=== PATIENT | female | born 1990 | race African-American/Black ===

== ENCOUNTER 2019-05-10 21:13 | Emergency (ER) | payer OTHER ==
[~2019-05-10] VITALS: Ht 170.2 cm; Wt 98.2 kg
[2019-05-10 22:43] LABS: INFLUENZA A AMPLIFICATION NEGATIVE (NEGATIVE); INFLUENZA B AMPLIFICATION POSITIVE (NEGATIVE)
[2019-05-11] MEDS ORDERED: NS 1,000 ML IV ONE (00:15)
[2019-05-11] MEDS ORDERED: ACETAMINOPHEN 325 MG TAB PO ONE (00:15)
[2019-05-11 00:45] VITALS: BP 141/92
[2019-05-11 00:53] LABS: BASO % 0.4 % (0.0-1.0); EOS % 0.3 % (0.0-3.0); HEMATOCRIT 43.4 % (36.0-47.0); HEMOGLOBIN 14.2 g/dl (12.0-15.5); LYMPH # 0.5 10^3/uL (1.5-5.0); LYMPH % 6.4 % (24.0-44.0); MEAN CORPUSCULAR HEMOGLOBIN 30.5 pg (27.0-33.0); MEAN CORPUSCULAR HGB CONC 32.7 g/dl (32.0-36.5); MEAN CORPUSCULAR VOLUME 93.3 fl (80.0-96.0); MONO # 1.1 10^3/uL (0.0-0.8); MONO % 14.2 % (0.0-5.0); NEUTROPHILS # 5.8 10^3/uL (1.5-8.5); NEUTROPHILS % 77.9 % (36.0-66.0); PLATELET COUNT, AUTOMATED 186 10^3/uL (150-450); RED BLOOD COUNT 4.65 10^6/uL (4.00-5.40); WHITE BLOOD COUNT 7.5 10^3/uL (4.0-10.0)
[2019-05-11 01:22] LABS: ALBUMIN 3.2 GM/DL (3.2-5.2); ALT/SGPT 41 U/L (12-78); BILIRUBIN,DIRECT < 0.1 MG/DL (0.0-0.2); BILIRUBIN,TOTAL 0.3 MG/DL (0.2-1.0); BLOOD UREA NITROGEN 17 MG/DL (7-18); CALCIUM LEVEL 9.3 MG/DL (8.5-10.1); CARBON DIOXIDE LEVEL 27 MEQ/L (21-32); CHLORIDE LEVEL 102 MEQ/L (98-107); CK-MB VALUE MASS < 1.0 NG/ML (<3.6); CPK CREATINE PHOSPHOKINASE 115 U/L (26-192); CREATININE FOR GFR 1.49 MG/DL (0.55-1.30); GLOMERULAR FILTRATION RATE 54.6 (>60); GLUCOSE, FASTING 88 MG/DL (70-100); LIPASE 131 U/L (73-393); MB/CK RELATIVE INDEX 0.87 (< OR =4); POTASSIUM SERUM 4.3 MEQ/L (3.5-5.1); SODIUM LEVEL 135 MEQ/L (136-145); TOTAL PROTEIN 7.7 GM/DL (6.4-8.2); TROPONIN I < 0.02 NG/ML (< 0.10)
[2019-05-11] MEDS ORDERED: PROAAER10 INH (02:10)
[2019-05-11] MEDS ORDERED: OSEL75CA PO (02:10)
[2019-05-11] MEDS ORDERED: KETOROLAC 30 MG/ML VIAL (J1885) IV ONE (02:15)
[2019-05-11] MEDS ORDERED: ALBUTEROL 90 MCG/ACT 8GM HFA INHALER INH ONE (02:15)
[2019-05-11] MEDS ORDERED: OSELTAMIVIR PHOSPHATE 75 MG CAP (TAMIFLU) PO ONE (02:15)
--- NOTE | 2019-05-11 08:01 | REP ---
Clinical: Lower chest and abdominal pain . Comparison: None . Technique: PA and lateral. Findings: The mediastinum and cardiac silhouette are normal. The lung rivera are clear and without acute consolidation, effusion, or pneumothorax. The skeletal structures are intact and normal. Impression: 1. No acute cardiopulmonary process. Electronically Signed by Chris Ibrahim MD 05/11/2019 07:47 A
--- NOTE | 2019-05-13 08:43 | ECGEPIP ---
[facility] - ED Test Date: 2019-05-11 Pat Name: AFTAB ZHANG Department: Room: - Gender: Female Back Hoe Machine Operator: YAYA : 1990 Requested By: TONNY Samuel PA-C Order Number: [id number] Reading MD: Parvin De La Vega Measurements Intervals [place] Rate: 94 P: 36 VT: 156 QRS: 3 QRSD: 90 T: 7 QT: 315 QTc: 395 Interpretive Statements SINUS RHYTHM MODERATE VOLTAGE CRITERIA FOR LVH, CONSIDER NORMAL VARIANT BENIGN EARLY REPOLARIZATION NO PRIORS FOR COMPARISON Electronically Signed on 05-13-2019 8:43:06 EST by Pravin De La Vega
== END 2019-05-11 02:40 | disposition home or self-care (01) ==
LOC: M ED 21:13
DX: J10.1 Influenza due to other identified influenza virus with other respiratory manifestations (principal); R35.0 Frequency of micturition; Z88.0 Allergy status to penicillin
CPT/HCPCS: 71046; 80048; 80076; 81001; 82550; 82553; 83690; 84484; 84702; 85025; 85379; 87502; 93005; 96361; 96374; 99284; J1885

== ENCOUNTER 2019-11-18 13:53 | Emergency (ER) | payer OTHER ==
[~2019-11-18] VITALS: Ht 170.2 cm; Wt 109.1 kg
[~2019-11-18 13:53] MED LIST: OSEL75CA PO; PROAAER10 INH
[2019-11-18 14:51] LABS: HEMATOCRIT 41.7 % (36.0-47.0); HEMOGLOBIN 13.5 g/dl (12.0-15.5); MEAN CORPUSCULAR HEMOGLOBIN 30.1 pg (27.0-33.0); MEAN CORPUSCULAR HGB CONC 32.4 g/dl (32.0-36.5); MEAN CORPUSCULAR VOLUME 92.9 fl (80.0-96.0); PLATELET COUNT, AUTOMATED 251 10^3/uL (150-450); RED BLOOD COUNT 4.49 10^6/uL (4.00-5.40); WHITE BLOOD COUNT 7.7 10^3/uL (4.0-10.0)
[2019-11-18 15:13] LABS: HCG, SERUM QUALITATIVE NEGATIVE (NEGATIVE)
[2019-11-18 15:24] LABS: ACETAMINOPHEN LEVEL < 2.0 UG/ML (10.0-30.0); ALBUMIN 3.4 GM/DL (3.2-5.2); ALT/SGPT 23 U/L (12-78); BILIRUBIN,DIRECT < 0.1 MG/DL (0.0-0.2); BILIRUBIN,TOTAL 0.3 MG/DL (0.2-1.0); BLOOD UREA NITROGEN 22 MG/DL (7-18); CALCIUM LEVEL 8.9 MG/DL (8.5-10.1); CARBON DIOXIDE LEVEL 26 MEQ/L (21-32); CHLORIDE LEVEL 107 MEQ/L (98-107); CREATININE FOR GFR 1.72 MG/DL (0.55-1.30); ETHYL ALCOHOL (ETHANOL) < 0.003 % (0.000-0.010); GLOMERULAR FILTRATION RATE 46.2 (>60); GLUCOSE, FASTING 82 MG/DL (70-100); POTASSIUM SERUM 4.5 MEQ/L (3.5-5.1); SALICYLATE LEVEL < 1.7 MG/DL (5.0-30.0); SODIUM LEVEL 138 MEQ/L (136-145)
[2019-11-18 16:01] LABS: AMPHETAMINES LEVEL URINE NEGATIVE (NEGATIVE); BARBITURATES URINE NEGATIVE (NEGATIVE); BENZODIAZEPINES URINE NEGATIVE (NEGATIVE); CANNABINOIDS URINE POSITIVE (NEGATIVE); COCAINE METABOLITE URINE NEGATIVE (NEGATIVE); METHADONE URINE NEGATIVE (NEGATIVE); OPIATES URINE NEGATIVE (NEGATIVE); PHENCYCLIDINE URINE NEGATIVE (NEGATIVE)
[2019-11-18 16:18] LABS: APPEARANCE, URINE CLOUDY (CLEAR); BACTERIA, URINE AUTO 1+ (NEGATIVE); BILIRUBIN, URINE AUTO NEGATIVE (NEGATIVE); BLOOD, URINE BLOOD NEGATIVE (NEGATIVE); COLOR, URINE YELLOW (YELLOW); GLUCOSE, URINE (UA) AUTO NEGATIVE (NEGATIVE); KETONE, URINE AUTO NEGATIVE (NEGATIVE); LEUKOCYTE ESTERASE, URINE AUTO 1+ (NEGATIVE); MUCUS, URINE SMALL (NEGATIVE); NITRITE, URINE AUTO NEGATIVE (NEGATIVE); PROTEIN, URINE AUTO 3+ mg/dL (NEGATIVE); RBC, URINE AUTO 2 /HPF (0-3); SPECIFIC GRAVITY URINE AUTO 1.016 (1.002-1.035); SQUAMOUS EPITHELIAL CELL UR AU 27 /HPF (0-6); UROBILINOGEN, URINE AUTO 0.2 mg/dL (0.0-2.0); WBC, URINE AUTO 6 /HPF (0-3)
[2019-11-18 16:49] LABS: IONIZED CALCIUM 4.7 MG/DL (4.5-5.3)
[2019-11-18 17:01] LABS: ERYTHROCYTE SEDIMENTATION RATE 55 mm/hr (0-20)
[2019-11-18 17:05] LABS: POTASSIUM RANDOM URINE 37.4 MEQ/L
--- NOTE | 2019-11-18 17:11 | REP ---
Clinical: Proteinuria. Technique: Real time johnson scale ultrasound examination using curved array transducer. Findings: The kidneys demonstrate increased parenchymal echo texture with normal reniform shape and no evidence for hydronephrosis, nephrolithiasis, cystic or renal mass lesion. Right kidney measures 9.9 x 4.6 x 3.7 cm. Left kidney measures 10.5 x 4.0 x 5.0 cm. Bladder is normal. Impression: Medical renal disease suggested. Electronically Signed by Chris Ibrahim MD 11/18/2019 05:02 P
[2019-11-18 17:39] LABS: MAGNESIUM LEVEL 1.8 MG/DL (1.8-2.4); URIC ACID 9.2 MG/DL (2.6-6.0)
[2019-11-18] MEDS ORDERED: hydrOXYzine 50 MG TAB PO STA (18:25)
[2019-11-18 18:38] VITALS: BP 148/86
== END 2019-11-18 18:41 | disposition home or self-care (01) ==
LOC: M ED 13:53
DX: F33.9 Major depressive disorder, recurrent, unspecified (principal); N28.9 Disorder of kidney and ureter, unspecified; Z88.0 Allergy status to penicillin
CPT/HCPCS: 36415; 76775; 80048; 80076; 80307; 81001; 82330; 82550; 82570; 83735; 83930; 83935; 84133; 84156; 84300; 84443; 84550; 84703; 85027; 85652; 86063; 99284; G0480

== ENCOUNTER → 2020-01-03 | Outpatient (REF) | payer OTHER ==
[2020-01-03 19:48] LABS: CHOLESTEROL LEVEL 228 MG/DL (<200); COMPLEMENT C3 187 MG/DL (90-180); COMPLEMENT C4 55 MG/DL (10-40); FREE T4 0.97 NG/DL (0.76-1.46); HDL CHOLESTEROL 60 MG/DL (>40); LDL CHOLESTEROL 144 MG/DL (<100); NON-HDL-C 168 MG/DL; TOTAL PROTEIN 7.9 GM/DL (6.4-8.2); TRIGLYCERIDES LEVEL 118 MG/DL (<150)
[2020-01-04 10:38] LABS: HEPATITIS C VIRUS ABY INDEX 0.1 INDEX (<0.8)
[2020-01-04 10:44] LABS: HEPATITIS B CORE ANTIBODY IGM NEGATIVE (NEGATIVE)
[2020-01-04 13:02] LABS: HEPATITIS B SURFACE ANTIBODY NEGATIVE (POSITIVE); HEPATITIS B SURFACE ANTIGEN NEGATIVE (NEGATIVE)
[2020-01-07 15:15] LABS: ALBUMIN 3.85 GM/DL (3.29-5.55); ALBUMIN % 48.7 % (55.8-66.1); ALPHA-1-GLOBULIN % 3.9 % (2.9-4.9); ALPHA-1-GLOBULINS 0.31 GM/DL (0.17-0.41); ALPHA-2-GLOBULINS 1.03 GM/DL (0.42-0.99); ALPHA-2-GLOBULINS % 13.1 % (7.1-11.8); BETA-1-GLOBULINS 0.47 GM/DL (0.28-0.60); BETA-1-GLOBULINS % 5.9 % (4.7-7.2); BETA-2-GLOBULINS 0.62 GM/DL (0.19-0.55); BETA-2-GLOBULINS % 7.9 % (3.2-6.5); GAMMA GLOBULIN % 20.5 % (11.1-18.8); GAMMA GLOBULINS 1.62 GM/DL (0.65-1.58)
[2020-01-10 16:07] LABS: ANCA-ATYPICAL <1:20 titer (Neg:<1:20); ANTI DS-DNA AB Negative (Negative); ANTI-GLOMERULAR BASEMENT MEMB 2 units (0-20); ANTINUCLEAR ANTIBODIES DIRECT Negative (Negative); CYTOPLASMIC NEUTROP AB ANCA-C <1:20 titer (Neg:<1:20); FREE KAPPA LIGHT CHAINS SERUM 70.9 mg/L (3.3-19.4); FREE LAMBDA LIGHT CHAINS SERUM 44.6 mg/L (5.7-26.3); KAPPA/LAMBDA RATIO SERUM 1.59 (0.26-1.65); PERINUCLEAR AB ANCA-P <1:20 titer (Neg:<1:20)
== END ==
LOC: M LAB REF 18:09
PROVIDERS: ATTEND Internal Medicine Nephrology
DX: R80.9 Proteinuria, unspecified (principal)

== ENCOUNTER → 2020-02-08 | Outpatient (REF) | payer OTHER ==
[2020-02-08 18:21] LABS: CREATININE, URINE 66.8 MG/DL; URINE TOTAL PROTEIN 196.9 MG/DL (0-12)
[2020-02-08 19:04] LABS: CREATININE 24 HOUR, URINE 741.4 MG/24HR (600-1800); TOTAL PROTEIN 24 HOUR URINE 2185.5 MG/24HR (50-150)
== END ==
LOC: M LAB REF 17:08
PROVIDERS: ATTEND Internal Medicine Nephrology
DX: R80.9 Proteinuria, unspecified (principal)

== ENCOUNTER → 2020-04-22 | Outpatient (POV) | payer OTHER ==
--- NOTE | 2020-04-23 14:01 | IRCOV ---
[facility] IR Consult Office Visit IR Consult Office Visit DATE: Apr 22, 2020 Patient agreed to this telephone consultation. I spent 30 minutes reviewing patient's records, imaging and talking to the patient. REASON FOR CONSULTATION/CHIEF COMPLAINT: Renal failure. Kidney biopsy HISTORY OF PRESENT ILLNESS: 29-year-old -[place] female referred for a kidney biopsy. Patient states that 5 years ago she had preeclampsia and gestational diabetes at which time she had proteinuria. She states she was well after that but then had blood work done in April 2019 and November of this year at which time she was again found to have proteinuria. She was referred to a fagoting machine operator who then referred her to me for a kidney biopsy. Patient denies any lower extremity swelling or abdominal swelling. She states her leg swell when she eats a lot of salt. Patient denies any bleeding history. She's had no prior procedures on the kidneys or renal biopsies. ALLERGIES: Please see below. HOME MEDICATIONS: Please see below. PAST MEDICAL HISTORY: Anxiety and depression PAST SURGICAL HISTORY: Noncontributory FAMILY HISTORY: Hypertension and diabetes. SOCIAL HISTORY: Nonsmoker. Occasional alcohol. Denies drugs. REVIEW OF SYSTEMS: Otherwise negative. PHYSICAL EXAMINATION: No video on patient side. LABORATORY DATA: 04/18/2020 hemoglobin 12.0 hematocrit 37.7 WBC 8.3 platelets 250 sodium 143 potassium 4.6 BUN 13.8 creatinine 1.6 GFR 47 02/08/2020 24 hour urine protein 2.1 g. Imaging: I reviewed the ultrasound of the kidneys performed in November this year. Poor evaluation of kidneys due to body habitus. ASSESSMENT/PLAN: 29-year-old female with proteinuria presents for kidney biopsy. Patient states she is going to [place] for a family emergency and would like to get her biopsy there while she is there. I advised her to follow-up with her PCP in [place] for further care. No procedure is being scheduled from our side. Patient to contact us if her circumstances change and/or she wishes to have her procedure here. Thank you for this referral. Cc Dr. Rios Allergies Coded Allergies: Penicillins (Verified Allergy, Intermediate, SWELLING OF LEG AFTER INJECTION, 05/10/19) Home Medications No Active Prescriptions or Reported Meds BABS MONTOYA MD Apr 23, 2020 14:01
== END ==
LOC: M TMIRPOV 09:44
PROVIDERS: ATTEND Radiology Diagnostic Radiology
DX: R80.9 Proteinuria, unspecified (principal)